=== PATIENT | female | born 1990 | race Caucasian/White ===

== ENCOUNTER 2017-11-15 17:48 | Emergency (ER) | payer BC, SELFPAY ==
[2017-11-15] MEDS ORDERED: CLINDAMYCIN IV 150 MG/ML (4 mL) VIAL ONE (19:02)
--- NOTE | 2017-11-15 20:10 | EDPHYS ---
Physician Documentation [facility] Name: Ivette Gilliland Age: 27 yrs Sex: Female : 1990 Arrival Date: 11/15/2017 Time: 17:50 Bed 13 Private MD: None, None ED Physician Geronimo Kelly HPI: 11/15 18:56 This 27 yrs old Female presents to ER via Ambulatory with complaints of Sore jmm Throat, Fever. 18:56 The patient presents with sore throat. Onset: The symptoms/episode began/occurred jmm gradually, 6 day(s) ago. This is a 27 year old female with a history anxiety that presents to the ED with 6 days of sore throat. Patient states she has taken cephalexin with no relief. Patient denies drooling or difficulty breathing. . 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 - Social history:: Smoking status: Patient uses tobacco products, smokes one-half pack cigarettes per day. - Ebola Screening: : No symptoms or risks identified at this time. ROS: 18:56 Eyes: Negative for injury, pain, redness, and discharge, Neck: Negative for injury, jmm pain, and swelling, Cardiovascular: Negative for chest pain, palpitations, and edema, Respiratory: Negative for shortness of breath, cough, wheezing, and pleuritic chest pain. 18:56 : Negative for injury, bleeding, discharge, and swelling, MS/Extremity: Negative for injury and deformity, Skin: Negative for injury, rash, and discoloration, Neuro: Negative for headache, weakness, numbness, tingling, and seizure. 18:56 Constitutional: Positive for fever. 18:56 ENT: Positive for sore throat. 18:56 All other systems are negative. Exam: 18:56 Head/Face: atraumatic. jmm 18:56 Cardiovascular: Regular rate and rhythm. No edema appreciated Respiratory: Normal respirations, no respiratory distress appreciated Abdomen/GI: Non distended, soft Back: Normal ROM Skin: General appearance color normal MS/ Extremity: Moves all extremities, no obvious deformities appreciated, no edema noted to the lower extremities Neuro: Awake and alert, normal gait 18:56 Constitutional: The patient appears in no acute distress, alert, awake. 18:56 ENT: Posterior pharynx: Uvula: midline, swelling, that is mild, erythema, that is moderate, exudate, that is moderate, peritonsillar mass, is not appreciated. 18:56 Neck: Lymph nodes: lymphadenopathy is appreciated, anterior cervical nodes. Vital Signs: 17:58 BP 145 / 89; Pulse 99; Resp 16; Temp 98.6; Pulse Ox 100% on R/A; Weight 78.47 kg; la1 Height 5 ft. 1 in. (154.94 cm); 19:20 BP 132 / 86; Pulse 92; Resp 16; Pulse Ox 98% on R/A; ao 20:41 BP 155 / 52; Pulse 93; Resp 18; Pulse Ox 98% on R/A; ao 17:58 Body Mass Index 32.69 (78.47 kg, 154.94 cm) la1 MDM: 18:56 Patient medically screened. [facility] 20:08 Data reviewed: vital signs, nurses notes, lab test result(s). Counseling: I had a [facility] detailed discussion with the patient and/or guardian regarding: the historical points, exam findings, and any diagnostic results supporting the discharge/admit diagnosis, the need for outpatient follow up, to return to the emergency department if symptoms worsen or persist or if there are any questions or concerns that arise at home. 20:08 ED course: Patient is alert and non toxic in appearance in the ED. Patient prescribed [facility] oral antibiotics and advised to follow up with ENT. Patient given return precautions. . 11/15 18:56 Order name: Strep; Complete Time: 20:08 [facility] 11/15 20:01 Order name: Throat Culture EDMS Administered Medications: 19:07 Drug: Clindamycin 600 mg Route: IM; Site: right gluteus; jb4 Disposition: 11/16 15:54 Co-signature as Attending Physician, Geronimo Kelly MD. Disposition: 11/15/17 20:09 Discharged to Home. Impression: Acute pharyngitis. - Condition is Stable. - Discharge Instructions: Pharyngitis. - Prescriptions for Clindamycin HCl 300 mg Oral Capsule - take 1 capsule by ORAL route every 6 hours for 10 days; 40 capsule. - Medication Reconciliation Form, Thank You Letter, Antibiotic Education, Prescription Opioid Use form. - Follow up: Private Physician; When: 2 - 3 days; Reason: Recheck today's complaints, Continuance of care, Re-evaluation by your physician. Signatures: Dispatcher [employer] EDMS Alex Anaya PA PA jmm Attema, Lee RN RN la1 Tin Marrero RN RN Tono Baires RN RN jb4 Geronimo Kelly MD MD gs Corrections: (The following items were deleted from the chart) 11/15 17:58 17:58 Allergies: CEPHALOSPORINS; la1 la1 20:41 20:09 11/15/2017 20:09 Discharged to Home. Impression: Acute pharyngitis. Condition is ao Stable. Forms are Medication Reconciliation Form, Thank You Letter, Antibiotic Education, Prescription Opioid Use. Follow up: Private Physician; When: 2 - 3 days; Reason: Recheck today's complaints, Continuance of care, Re-evaluation by your physician. mary
--- NOTE | 2017-11-15 20:10 | ER ---
Nurse's Notes [facility] Name: Ivette Gilliland Age: 27 yrs Sex: Female : 1990 Arrival Date: 11/15/2017 Time: 17:50 Bed 13 Private MD: None, None Diagnosis: Acute pharyngitis Presentation: 11/15 17:57 Presenting complaint: Patient states: daughter was positive for strep, they put me on la1 keflex one week ago and my throat is sore, tonsils swollen and there is white stuff all over them. Transition of care: patient was not received from another setting of care. Onset of symptoms was November 15, 2017. Risk Assessment: Do you want to hurt yourself or someone else? Patient reports no desire to harm self or others. Initial Sepsis Screen: Does the patient meet any 2 criteria? No. Patient's initial sepsis screen is negative. Does the patient have a suspected source of infection? No. Patient's initial sepsis screen is negative. Care prior to arrival: None. 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 - Social history:: Smoking status: Patient uses tobacco products, smokes one-half pack cigarettes per day. - Ebola Screening: : No symptoms or risks identified at this time. Screenin:13 Abuse screen: Denies threats or abuse. Nutritional screening: No deficits noted. jb4 Tuberculosis screening: No symptoms or risk factors identified. Fall Risk None identified. Assessment: 18:13 General: Appears in no apparent distress. comfortable, Behavior is calm, cooperative, jb4 appropriate for age, Pt reports being unable to take prednisone due to side effects.. Pain: Complains of pain in throat. Pain radiates to jaw Pain currently is 3 out of 10 on a pain scale. at worst was 5 out of 10 on a pain scale. Quality of pain is described as aching, Pain began Saturday. Neuro: Level of Consciousness is awake, alert, obeys commands, Oriented to person, place, time, situation. Cardiovascular: Heart tones S1 S2 present Patient's skin is warm and dry. Respiratory: Airway is patent Respiratory effort is even, unlabored, Respiratory pattern is regular, symmetrical, Breath sounds are clear bilaterally. GI: No signs and/or symptoms were reported involving the gastrointestinal system. : No signs and/or symptoms were reported regarding the genitourinary system. EENT: Throat is reddened has patchy exudate has enlarged tonsils bilaterally with gag reflex present. Derm: Skin is intact, Skin is pink, warm \T\ dry. Musculoskeletal: Circulation, motion, and sensation intact. 18:39 Reassessment: awaiting for provider;. jb4 19:20 Reassessment: Patient appears in no apparent distress at this time. Patient is alert, ao oriented x 3, equal unlabored respirations, skin warm/dry/pink. Received report from [employer]. Patient stable at this moment. Waiting on Dispo orders. 20:40 Reassessment: DC instructions given to patient. Patient agree to follow up with PCP. ao Vital Signs: 17:58 BP 145 / 89; Pulse 99; Resp 16; Temp 98.6; Pulse Ox 100% on R/A; Weight 78.47 kg; la1 Height 5 ft. 1 in. (154.94 cm); 19:20 BP 132 / 86; Pulse 92; Resp 16; Pulse Ox 98% on R/A; ao 20:41 BP 155 / 52; Pulse 93; Resp 18; Pulse Ox 98% on R/A; ao 17:58 Body Mass Index 32.69 (78.47 kg, 154.94 cm) la1 ED Course: 17:50 Patient arrived in ED. mr 17:50 None, None is Private Physician. mr 17:58 Triage completed. la1 17:58 Arm band placed on right wrist. la1 18:06 Tono Up RN is Primary Nurse. jb4 18:11 Alex Anaya PA is PHCP. [facility] 18:11 Geronimo Kelly MD is Attending Physician. [facility] 18:13 Patient has correct armband on for positive identification. Bed in low position. Call jb4 light in reach. Side rails up X 1. Pulse ox on. NIBP on. 18:56 Strep Sent. hj 19:05 Report given to DESI Castle. jb4 20:37 No provider procedures requiring assistance completed. Patient did not have IV access ao during this emergency room visit. Administered Medications: 19:07 Drug: Clindamycin 600 mg Route: IM; Site: right gluteus; jb4 Outcome: 20:09 Discharge ordered by MD. hernandez 20:37 Discharged to home ambulatory. ao 20:37 Condition: stable 20:37 Discharge instructions given to patient, Instructed on discharge instructions, follow up and referral plans. Demonstrated understanding of instructions, follow-up care, medications, Prescriptions given X 1. 20:41 Patient left the ED. ao Signatures: Alex Anaya PA PA jmm Rivera, Maria mr Aleta, Albaro, RN RN la1 Meng Hernandez RN RN hj Ortiz, Alex, RN RN ao Bryson, James, RN RN jb4 Corrections: (The following items were deleted from the chart) 17:58 17:58 Allergies: CEPHALOSPORINS; braden1 laAdela 18:54 18:13 General: Appears in no apparent distress. comfortable, Behavior is calm, jb4 cooperative, appropriate for age, jb4 19:21 19:20 Report given to [facility]I Castle jb4
[2017-11-15 22:12] VITALS: TEMP 98.6
[2017-11-15 22:13] VITALS: O2SAT 98
[2017-11-15 22:14] VITALS: BP 155/52
== END 2017-11-15 20:41 | disposition home or self-care (01) ==
LOC: ER 17:48
DX: J02.9 Acute pharyngitis, unspecified (principal); F17.210 Nicotine dependence, cigarettes, uncomplicated; Z88.1 Allergy status to other antibiotic agents
CPT/HCPCS: 87070; 87081; 96372; 99284; S0077

== ENCOUNTER 2018-09-23 15:46 | Emergency (ER) | payer SELFPAY ==
--- OUTSIDE RECORDS SUMMARY | 2018-09-23 15:49 | XMS REPORT ---
:1990 [facility] Address [address] [place] [address] Dr. Rhodes [address] [place] [id number] Care Team Providers Name Role Phone Unavailable Unavailable Unavailable Problems This patient has no known problems. Allergies, Adverse Reactions, Alerts This patient has no known allergies or adverse reactions. Medications This patient has no known medications.
[2018-09-23 16:34] LABS: Urine Blood TRACE (NEG); Urine Glucose NEGATIVE (NEG); Urine Protein NEGATIVE (NEG); Urine Specific Gravity <1.005 (1.005-1.030); Urine pH 5.5 (5.0-7.0)
[2018-09-23 16:39] LABS: Absolute Lymphocytes (CBC) 2.1 K/uL (0.7-4.9); Basophils % 0.4 % (0-1.3); Eosinophils % 2.5 % (0-4.4); Hematocrit 44.9 % (36.0-45.0); Lymphocytes % 15.7 % (15.3-44.8); MPV 8.6 fL (7.6-11.3); Monocytes % 4.8 % (3.3-12.3); RBC Red Blood Cell Count 4.94 M/uL (3.86-4.86)
--- NOTE | 2018-09-23 16:59 | RAD REPORT ---
EXAM DESCRIPTION: US - Transvaginal OB - 09/23/2018 4:45 pm CLINICAL HISTORY: Abd cramping, ;Vaginal bleeding COMPARISON: No comparisons FINDINGS: A single gestational sac is seen within the uterus. The shape of the sac is within normal limits for gestational age. Within the sac is a single pole with crown-rump length of 5 mm, cor relating to estimated gestational age of 6 weeks 1 day. Estimated date of delivery is 05/18/2019. Heart rate is 180 BPM. The placenta is not yet developed due to early gestational age. The maternal adnexa and right ovary are within normal limits. Normal Doppler blood flow was demonstra edward to the right ovary. 8 mm subchorionic bleed was noted. IMPRESSION: Single live early intrauterine gestation with estimated gestational age of 6 weeks 1 day gestational age, CHAD 05/18/2019. 8 mm subchorionic bleed is noted.
[2018-09-23 17:14] LABS: BUN Blood Urea Nitrogen 9 mg/dL (7-18); Bicarbonate 27 mmol/L (21-32); Glucose Level 80 mg/dL (74-106); HCG, Quantitative 60599 mIU/mL (1-3); Potassium 3.6 mmol/L (3.5-5.1); Sodium Level 139 mmol/L (136-145)
--- NOTE | 2018-09-23 17:46 | ER ---
Nurse's Notes [facility] Name: Ivette Gilliland Age: 28 yrs Sex: Female : 1990 Arrival Date: 09/23/2018 Time: 15:48 Bed 28 Private MD: Diagnosis: Threatened ;Subchorionic bleed Presentation: 09/23 15:51 Presenting complaint: Patient states: "I'm and I'm having some pretty severe aj1 cramping today and yesterday and I'm also having some cramping" Patient reports that she is 9 weeks and she is seeing the [facility] clinic for this . Transition of care: patient was not received from another setting of care. Onset of symptoms was September 23, 2018. Risk Assessment: Do you want to hurt yourself or someone else? Patient reports no desire to harm self or others. Initial Sepsis Screen: Does the patient meet any 2 criteria? No. Patient's initial sepsis screen is negative. Does the patient have a suspected source of infection? No. Patient's initial sepsis screen is negative. Care prior to arrival: None. 15:51 Method Of Arrival: Ambulatory aj 15:51 Acuity: YAZAN 3 aj1 Triage Assessment: 15:52 General: Appears in no apparent distress. comfortable, Behavior is calm, cooperative, aj1 appropriate for age. Pain: Complains of pain in right lower quadrant and left lower quadrant Pain currently is 6 out of 10 on a pain scale. Neuro: Level of Consciousness is awake, alert, obeys commands. Cardiovascular: Patient's skin is warm and dry. Respiratory: Airway is patent Respiratory effort is even, unlabored, Respiratory pattern is regular, symmetrical. GI: Reports cramping. 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 - Social history:: Smoking status: Patient/guardian denies using tobacco. - Ebola Screening: : Patient denies travel to an Ebola-affected area in the 21 days before illness onset. - Family history:: not pertinent. - Hospitalizations: : No recent hospitalization is reported. Screenin:00 Abuse screen: Denies threats or abuse. Denies injuries from another. Nutritional ca1 screening: No deficits noted. Tuberculosis screening: No symptoms or risk factors identified. Fall Risk IV access (20 points). Assessment: 16:00 General: Appears in no apparent distress. comfortable, Behavior is calm, cooperative, ca1 appropriate for age. Pain: Complains of pain in abdomen and left lower quadrant and right lower quadrant Pain does not radiate. Pain currently is 6 out of 10 on a pain scale. Quality of pain is described as crampy, Pain began 2-3 days ago. Is intermittent. Neuro: Level of Consciousness is awake, alert, obeys commands, Oriented to person, place, time, situation. Cardiovascular: Heart tones S1 S2 present Capillary refill < 3 seconds Patient's skin is warm and dry. Respiratory: Airway is patent Respiratory effort is even, unlabored, Respiratory pattern is regular, symmetrical, Breath sounds are clear bilaterally. GI: Abdomen is round non-distended, Bowel sounds present X 4 quads. Abd is soft and non tender X 4 quads. : Urine is clear. EENT: No deficits noted. No signs and/or symptoms were reported regarding the EENT system. Derm: Skin is intact, is healthy with good turgor, Skin is pink, warm \\T\\ dry. Musculoskeletal: Circulation, motion, and sensation intact. Capillary refill < 3 seconds, Range of motion: intact in all extremities. 17:10 Reassessment: Patient appears in no apparent distress at this time. Patient and/or ca1 family updated on plan of care and expected duration. Pain level reassessed. Patient is alert, oriented x 3, equal unlabored respirations, skin warm/dry/pink. Awaiting for RhoGam. 18:25 Reassessment: Patient appears in no apparent distress at this time. Patient and/or ca1 family updated on plan of care and expected duration. Pain level reassessed. Verified pt, blood band and RhoGam with ANGELY Antunez. 18:48 Reassessment: Patient appears in no apparent distress at this time. Patient is alert, ca1 oriented x 3, equal unlabored respirations, skin warm/dry/pink. Vital Signs: 15:52 BP 144 / 81; Pulse 87; Resp 18; Temp 97.2; Pulse Ox 100% on R/A; Weight 76.2 kg (R); aj1 Height 5 ft. 1 in. (154.94 cm) (R); Pain 6/10; 16:50 BP 120 / 68; Pulse 86; Resp 17 S; Pulse Ox 99% on R/A; ca1 17:29 BP 128 / 87; Pulse 83; Resp 17 S; Pulse Ox 100% on R/A; ca1 18:15 BP 106 / 71; Pulse 82; Resp 17 S; Temp 97.5(O); Pulse Ox 99% on R/A; ca1 18:49 BP 118 / 76; Pulse 83; Resp 18 S; Temp 97.5(O); Pulse Ox 100% on R/A; ca1 15:52 Body Mass Index 31.74 (76.20 kg, 154.94 cm) aj1 ED Course: 15:48 Patient arrived in ED. mr 15:50 Timothy Davis MD is Attending Physician. rn 15:51 Triage completed. aj1 15:52 Arm band placed on Patient placed in an exam room. aj1 15:55 Gris Castaneda, DESI is Primary Nurse. ca1 16:00 Patient has correct armband on for positive identification. Placed in gown. Bed in low ca1 position. Call light in reach. Side rails up X 1. Pulse ox on. NIBP on. Warm blanket given. 16:05 No provider procedures requiring assistance completed. Inserted saline lock: 20 gauge ca1 in left antecubital area, using aseptic technique. Blood collected. 16:20 Patient taken to ultrasound. via wheelchair. ca1 16:45 US Transvaginal Ob In Process Unspecified. EDMS 18:49 IV discontinued, intact, bleeding controlled, No redness/swelling at site. Pressure ca1 dressing applied. Administered Medications: 18:26 Drug: RhoGAM (Human) 300 mcg Route: IM; Site: left deltoid; ca1 18:48 Follow up: Response: No adverse reaction ca1 Outcome: 17:45 Discharge ordered by . rn 18:49 Discharged to home ambulatory, with significant other. ca1 18:49 Condition: stable 18:49 Discharge instructions given to patient, Instructed on discharge instructions, follow up and referral plans. Demonstrated understanding of instructions, follow-up care. 18:49 Patient left the ED. ca1 Signatures: Dispatcher [employer] EDJacque Parish RN RN aj1 Malaika Moss mr Timothy Davis MD MD rn AcGris glass RN RN ca1 Corrections: (The following items were deleted from the chart) 16:28 16:00 Fall Risk ca1 ca1 17:29 17:29 BP 128 / 87; Pulse 83bpm; Resp 17bpm; Pulse Ox 100% RA; ca1 ca1
--- NOTE | 2018-09-23 17:46 | EDPHYS ---
Physician Documentation [facility] Name: Ivette Gilliland Age: 28 yrs Sex: Female : 1990 Arrival Date: 09/23/2018 Time: 15:48 Bed 28 Private MD: ED Physician Timothy Davis HPI: 09/23 16:06 This 28 yrs old Female presents to ER via Ambulatory with complaints of 9 wks rn , Abdominal Pain. 16:06 The patient presents to the emergency department with vaginal bleeding, described as rn spotting. The estimated gestational age is 9 weeks. course: care: private OB physician, Leakage of Fluid: none appreciated, Ultrasound: the patient has not had an ultrasound. Previous pregnancies: in previous pregnancies patient has had no complications. The patient has not experienced similar symptoms in the past. Reports approx 9 weeks , has seen OB, no u/s, reports abd cramping entire , but now spotting over last few days, states Rh -, no trauma, no urinary symptoms.. 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 - Social history:: Smoking status: Patient/guardian denies using tobacco. - Ebola Screening: : Patient denies travel to an Ebola-affected area in the 21 days before illness onset. - Family history:: not pertinent. - Hospitalizations: : No recent hospitalization is reported. ROS: 16:06 Constitutional: Negative for fever, chills, and weight loss, Eyes: Negative for injury, rn pain, redness, and discharge, Neck: Negative for injury, pain, and swelling, Cardiovascular: Negative for chest pain, palpitations, and edema, Respiratory: Negative for shortness of breath, cough, wheezing, and pleuritic chest pain, Abdomen/GI: + abd cramping, negative for vomiting/diarrhea : + vaginal spotting MS/Extremity: Negative for injury and deformity, Skin: Negative for injury, rash, and discoloration, Neuro: Negative for headache, weakness, numbness, tingling, and seizure. Exam: 16:06 Constitutional: This is a well developed, well nourished patient who is awake, alert, rn and in no acute distress. Head/Face: Normocephalic, atraumatic. Abdomen/GI: soft, non-tender Skin: Warm, dry with normal turgor. Normal color with no rashes, no lesions, and no evidence of cellulitis. MS/ Extremity: Pulses equal, no cyanosis. Neurovascular intact. Full, normal range of motion. Equal circumference. Neuro: Awake and alert, GCS 15, oriented to person, place, time, and situation. Cranial nerves II-XII grossly intact. Motor strength 5/5 in all extremities. Sensory grossly intact. Cerebellar exam normal. Normal gait. Vital Signs: 15:52 BP 144 / 81; Pulse 87; Resp 18; Temp 97.2; Pulse Ox 100% on R/A; Weight 76.2 kg (R); aj1 Height 5 ft. 1 in. (154.94 cm) (R); Pain 6/10; 16:50 BP 120 / 68; Pulse 86; Resp 17 S; Pulse Ox 99% on R/A; ca1 17:29 BP 128 / 87; Pulse 83; Resp 17 S; Pulse Ox 100% on R/A; ca1 18:15 BP 106 / 71; Pulse 82; Resp 17 S; Temp 97.5(O); Pulse Ox 99% on R/A; ca1 18:49 BP 118 / 76; Pulse 83; Resp 18 S; Temp 97.5(O); Pulse Ox 100% on R/A; ca1 15:52 Body Mass Index 31.74 (76.20 kg, 154.94 cm) aj1 MDM: 15:50 Patient medically screened. rn 17:43 Differential diagnosis: ectopic . Differential diagnosis: threatened rn miscarriage. Data reviewed: vital signs, nurses notes. Counseling: I had a detailed discussion with the patient and/or guardian regarding: the historical points, exam findings, and any diagnostic results supporting the discharge/admit diagnosis, lab results, radiology results, the need for outpatient follow up, to return to the emergency department if symptoms worsen or persist or if there are any questions or concerns that arise at home. Special discussion: I discussed with the patient/guardian in detail that at this point there is no indication for admission to the hospital. It is understood, however, that if the symptoms persist or worsen the patient needs to return immediately for re-evaluation. Based on the history and exam findings, there is no indication for further emergent testing or inpatient evaluation. I discussed with the patient/guardian the need to see the OB Gyne specialist for further evaluation of the symptoms. ED course: Pt with single live IUP, small subchorionic bleed, Rh-, Rhogam given, and will f/u with her private OB. . 09/23 16:06 Order name: Quantitative Hcg; Complete Time: 17:17 09/23 16:06 Order name: Abo/rh Typing 09/23 16:06 Order name: Basic Metabolic Panel; Complete Time: 17:17 09/23 16:06 Order name: CBC with Diff; Complete Time: 16:53 09/23 16:18 Order name: Urine Dipstick--Ancillary (enter results); Complete Time: 16:53 09/23 16:18 Order name: Urine --Ancillary (enter results); Complete Time: 16:53 09/23 16:06 Order name: US Transvaginal Ob; Complete Time: 17:06 09/23 17:21 Order name: Rh Typing [facility] 09/23 17:21 Order name: Antibody Screen [facility] 09/23 17:21 Order name: Fetalscreen [facility] 09/23 17:21 Order name: Cord Rh type [facility] 09/23 17:21 Order name: Rhogam [facility] 09/23 17:32 Order name: ABO/RH no charge [facility] 09/23 16:06 Order name: Urine Test (obtain specimen); Complete Time: 16:16 09/23 16:06 Order name: IV Saline Lock; Complete Time: 16:25 09/23 16:06 Order name: Labs collected and sent; Complete Time: 16:25 09/23 16:06 Order name: Urine Dipstick-Ancillary (obtain specimen); Complete Time: 16:16 rn Administered Medications: 18:26 Drug: RhoGAM (Human) 300 mcg Route: IM; Site: left deltoid; ca1 18:48 Follow up: Response: No adverse reaction ca1 Disposition: 09/23/18 17:45 Discharged to Home. Impression: Threatened , Subchorionic bleed. - Condition is Stable. - Discharge Instructions: Threatened Miscarriage, Vaginal Bleeding During , First Trimester, Subchorionic Hematoma, Pelvic Rest. - Medication Reconciliation Form, Thank You Letter, Antibiotic Education, Prescription Opioid Use form. - Follow up: Private Physician; When: As needed; Reason: Recheck today's complaints, Re-evaluation by your physician. - Problem is new. - Symptoms have improved. Signatures: Dispatcher [employer] EDJacque Parish RN RN aj1 Timothy Davis MD MD rn Acob, DESI Landry RN ca1 Corrections: (The following items were deleted from the chart) 18:49 17:45 09/23/2018 17:45 Discharged to Home. Impression: Threatened ; ca1 Subchorionic bleed. Condition is Stable. Forms are Medication Reconciliation Form, Thank You Letter, Antibiotic Education, Prescription Opioid Use. Follow up: Private Physician; When: As needed; Reason: Recheck today's complaints, Re-evaluation by your physician. Problem is new. Symptoms have improved. rn
[2018-09-23 19:14] VITALS: TEMP 97.5
[2018-09-23 19:15] VITALS: BP 118/76; O2SAT 100
== END 2018-09-23 18:49 | disposition home or self-care (01) ==
LOC: ER 15:46
DX: O20.0 Threatened abortion (principal); O99.341 Other mental disorders complicating pregnancy, first trimester; F41.9 Anxiety disorder, unspecified; Z3A.09 9 weeks gestation of pregnancy; Z88.1 Allergy status to other antibiotic agents; Z91.040 Latex allergy status
CPT/HCPCS: 36415; 76817; 80048; 81003; 81025; 84702; 85025; 86850; 86900; 86901; 96372; 99284; J2790

== ENCOUNTER 2018-09-24 07:01 | Emergency (ER) | payer SELFPAY ==
--- OUTSIDE RECORDS SUMMARY | 2018-09-24 07:16 | XMS REPORT ---
:1990 [facility] Address [address] [place] [address] Dr. Rhodes [address] [place] [id number] Care Team Providers Name Role Phone Unavailable Unavailable Unavailable Problems This patient has no known problems. Allergies, Adverse Reactions, Alerts This patient has no known allergies or adverse reactions. Medications This patient has no known medications.
--- NOTE | 2018-09-24 08:22 | RAD REPORT ---
EXAM DESCRIPTION: US - Transvaginal OB - 09/24/2018 8:11 am CLINICAL HISTORY: Abd cramping, ;Vaginal bleeding COMPARISON: Transvaginal OB dated 09/23/2018 FINDINGS: A single gestational sac is seen within the uterus. The sac appears somewhat large inside. Within the sac is a single pole with crown-rump length of 5 mm, correlating to estimated gesta tional age of 6 weeks 2 days. Estimated date of delivery is 05/18/2021. Heart rate could not be seen on today's study despite prolonged sonographic observation. The placenta is not yet developed due to early gestational age. 8 mm subchorionic bleed is present. The maternal adnexa and ovaries are within normal limits. Normal Doppler blood flow was demonstrated to both ovaries. IMPRESSION: On today's examination, FHT could not be demonstrated. This is a worrisome finding for f dominguez early and close interval follow-up pelvic ultrasound is recommended in 48 hours.
--- NOTE | 2018-09-24 09:12 | ER ---
Nurse's Notes [facility] Name: Ivette Gilliland Age: 28 yrs Sex: Female : 1990 Arrival Date: 09/24/2018 Time: 07:01 Bed 4 Private MD: Diagnosis: Threatened Presentation: 09/24 07:06 Presenting complaint: Patient states: I was in here yesterday for spotting and ed1 cramping. When I woke up this morning I was having heavy vaginal bleeding and the cramping is really bad. Transition of care: patient was not received from another setting of care. Onset of symptoms was September 24, 2018. Risk Assessment: Do you want to hurt yourself or someone else? Patient reports no desire to harm self or others. Initial Sepsis Screen: Does the patient meet any 2 criteria? No. Patient's initial sepsis screen is negative. Does the patient have a suspected source of infection? No. Patient's initial sepsis screen is negative. Care prior to arrival: None. 07:06 Method Of Arrival: Ambulatory ed1 07:06 Acuity: YAZAN 2 ed1 Triage Assessment: 07:07 General: Appears in no apparent distress. Behavior is calm, cooperative. Pain: ed1 Complains of pain in suprapubic area Pain currently is 0 out of 10 on a pain scale. at worst was 10 out of 10 on a pain scale. : Reports vaginal bleeding that is bright red. 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 - Social history:: Smoking status: Patient/guardian denies using tobacco. - Ebola Screening: : Patient negative for fever greater than or equal to 101.5 degrees Fahrenheit, and additional compatible Ebola Virus Disease symptoms Patient denies exposure to infectious person Patient denies travel to an Ebola-affected area in the 21 days before illness onset No symptoms or risks identified at this time. Screenin:38 Abuse screen: Denies threats or abuse. Nutritional screening: No deficits noted. tr5 Tuberculosis screening: No symptoms or risk factors identified. Fall Risk No fall in past 12 months (0 pts). No secondary diagnosis (0 pts). No IV (0 pts). Ambulatory Aid- None/Bed Rest/Nurse Assist (0 pts). Gait- Normal/Bed Rest/Wheelchair (0 pts) Mental Status- Oriented to own ability (0 pts). Total Scott Fall Scale indicates No Risk (0-24 pts). Assessment: 07:35 Obstetrical Assessment: General assessment: awake and alert. tr5 07:35 General: Appears in no apparent distress. Behavior is calm, cooperative, appropriate tr5 for age. Pain: Denies pain. Neuro: Level of Consciousness is awake, alert, Oriented to person, place, time, situation, [employer] are equal bilaterally Moves all extremities. Cardiovascular: Heart tones present Bruits absent Capillary refill < 3 seconds Pulses are all present. Edema is absent. Respiratory: Airway is patent Trachea midline Respiratory effort is even, unlabored, Respiratory pattern is regular, symmetrical, Breath sounds are clear bilaterally. GI: No signs and/or symptoms were reported involving the gastrointestinal system. : Reports vaginal bleeding that is bright red, moderate flow. EENT: No signs and/or symptoms were reported regarding the EENT system. Derm: Skin is intact, Skin is dry, Skin is pink, warm \T\ dry. Musculoskeletal: Capillary refill < 3 seconds, Range of motion: intact in all extremities. Vital Signs: 07:07 BP 140 / 69; Pulse 75; Resp 17; Temp 98.2(TE); Pulse Ox 100% on R/A; Weight 76.2 kg; ed1 Height 5 ft. 1 in. (154.94 cm); Pain 0/10; 07:07 Body Mass Index 31.74 (76.20 kg, 154.94 cm) ed1 ED Course: 07:01 Patient arrived in ED. as 07:03 Nita Mccrary FNP-C [facility]. kb 07:03 Fabio Hernández MD is Attending Physician. kb 07:07 Triage completed. ed1 07:07 Arm band placed on right wrist. ed1 07:34 Patient taken to ultrasound. hr 07:35 Initial lab(s) drawn, by me, sent to lab. tr5 07:54 Mckinley Britton, RN is Primary Nurse. 08:08 Transvaginal Ob In Process Unspecified. EDMS 08:39 Awaiting lab results, Awaiting radiology results. tr5 09:35 No provider procedures requiring assistance completed. Patient did not have IV access hb during this emergency room visit. Administered Medications: No medications were administered Outcome: 09:11 Discharge ordered by . kb 09:34 Discharged to home with significant other. hb 09:34 Condition: stable 09:34 Discharge instructions given to patient, Instructed on discharge instructions, follow up and referral plans. Demonstrated understanding of instructions, follow-up care. 09:35 Patient left the ED. hb Signatures: Dispatcher [employer] EDMS Nita Mccrary, SENIOR DIRECTOR-C SENIOR DIRECTOR-Shahida Lagos, RN RN Chelo Arenas Amelia as Riggs, Erika, RN RN ed1 Maddie Chacon RN RN Mckinley Britton, RN RN tr5 Corrections: (The following items were deleted from the chart) 08:38 08:35 Obstetrical Assessment: General assessment: awake and alert, tr5 tr5
--- NOTE | 2018-09-24 09:12 | EDPHYS ---
Physician Documentation [facility] Name: Ivette Gilliland Age: 28 yrs Sex: Female : 1990 Arrival Date: 09/24/2018 Time: 07:01 Bed 4 Private MD: YURIY Physician Fabio Hernández HPI: 09/24 07:14 This 28 yrs old Female presents to ER via Ambulatory with complaints of kb Vaginal Bleeding, + Preg <12wks. 07:14 The patient presents to the emergency department with abdominal pain, of the suprapubic kb area, vaginal bleeding, that is light. The estimated gestational age is 6 weeks. course: care: at a clinic, Leakage of Fluid: none appreciated, Ultrasound: the patient had an ultrasound, on September 23, 2018, which was normal. Previous pregnancies: in previous pregnancies patient has had. Associated signs and symptoms: Pertinent positives: abdominal pain, vaginal bleeding, Pertinent negatives: chest pain, diarrhea, dysuria, fever, frequency, nausea, ruptured membranes, seizure, shortness of breath, vaginal discharge, vomiting. The patient has not experienced similar symptoms in the past. The patient has been recently seen at the [facility] Emergency Department, yesterday. Pt reports she has had abd cramping and spotting for a couple of days. Came in yesterday and was given a dose of Rhogam after labs and US. States the bleeding is a little heavier now.. 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 - Social history:: Smoking status: Patient/guardian denies using tobacco. - Ebola Screening: : Patient negative for fever greater than or equal to 101.5 degrees Fahrenheit, and additional compatible Ebola Virus Disease symptoms Patient denies exposure to infectious person Patient denies travel to an Ebola-affected area in the 21 days before illness onset No symptoms or risks identified at this time. ROS: 07:13 Constitutional: Negative for fever, chills, and weight loss, ENT: Negative for injury, kb pain, and discharge, Neck: Negative for injury, pain, and swelling, Cardiovascular: Negative for chest pain, palpitations, and edema, Respiratory: Negative for shortness of breath, cough, wheezing, and pleuritic chest pain, Back: Negative for injury and pain, MS/Extremity: Negative for injury and deformity, Skin: Negative for injury, rash, and discoloration, Neuro: Negative for headache, weakness, numbness, tingling, and seizure. 07:13 Abdomen/GI: Positive for abdominal pain, Negative for nausea, vomiting, and diarrhea, constipation, abdominal cramps, abdominal distension, anorexia. 07:13 : Positive for vaginal bleeding. Exam: 07:13 Constitutional: This is a well developed, well nourished patient who is awake, alert, kb and in no acute distress. Head/Face: Normocephalic, atraumatic. Chest/axilla: Normal chest wall appearance and motion. Nontender with no deformity. No lesions are appreciated. Cardiovascular: Regular rate and rhythm with a normal S1 and S2. No gallops, murmurs, or rubs. Normal PMI, no JVD. No pulse deficits. Respiratory: Lungs have equal breath sounds bilaterally, clear to auscultation and percussion. No rales, rhonchi or wheezes noted. No increased work of breathing, no retractions or nasal flaring. Abdomen/GI: Soft, non-tender, with normal bowel sounds. No distension or tympany. No guarding or rebound. No evidence of tenderness throughout. Skin: Warm, dry with normal turgor. Normal color with no rashes, no lesions, and no evidence of cellulitis. MS/ Extremity: Pulses equal, no cyanosis. Neurovascular intact. Full, normal range of motion. Neuro: Awake and alert, GCS 15, oriented to person, place, time, and situation. Cranial nerves II-XII grossly intact. Motor strength 5/5 in all extremities. Sensory grossly intact. Cerebellar exam normal. Normal gait. Vital Signs: 07:07 BP 140 / 69; Pulse 75; Resp 17; Temp 98.2(TE); Pulse Ox 100% on R/A; Weight 76.2 kg; ed1 Height 5 ft. 1 in. (154.94 cm); Pain 0/10; 07:07 Body Mass Index 31.74 (76.20 kg, 154.94 cm) ed1 MDM: 07:08 Patient medically screened. kb 07:14 Data reviewed: vital signs, nurses notes. Data interpreted: Pulse oximetry: on room air kb is 100 %. Interpretation: normal. 09:11 Counseling: I had a detailed discussion with the patient and/or guardian regarding: the kb historical points, exam findings, and any diagnostic results supporting the discharge/admit diagnosis, lab results, radiology results, the need for outpatient follow up, an OB/Gyne specialist, to return to the emergency department if symptoms worsen or persist or if there are any questions or concerns that arise at home. 09/24 07:09 Order name: HCG-Quantitative; Complete Time: 09:11 kb 09/24 07:09 Order name: US Transvaginal Ob; Complete Time: 08:25 kb Administered Medications: No medications were administered Disposition: 09/24/18 09:11 Discharged to Home. Impression: Threatened . - Condition is Stable. - Discharge Instructions: Threatened Miscarriage, [id number], Pelvic Rest. - Medication Reconciliation Form, Thank You Letter, Antibiotic Education, Prescription Opioid Use form. - Follow up: Emergency Department; When: As needed; Reason: Worsening of condition. Follow up: Private Physician; When: 2 - 3 days; Reason: Recheck today's complaints, Continuance of care, Re-evaluation by your physician. Signatures: Dispatcher [employer] EDFL Nita Mccrary, ANILA SHAFFER-Rayne Casiano RN RN ed1 Maddie Chacon RN RN hb Corrections: (The following items were deleted from the chart) 09:35 09:11 09/24/2018 09:11 Discharged to Home. Impression: Threatened . Condition hb is Stable. Forms are Medication Reconciliation Form, Thank You Letter, Antibiotic Education, Prescription Opioid Use. Follow up: Emergency Department; When: As needed; Reason: Worsening of condition. Follow up: Private Physician; When: 2 - 3 days; Reason: Recheck today's complaints, Continuance of care, Re-evaluation by your physician. kb
[2018-09-24 10:13] VITALS: BP 140/69; TEMP 98.2; O2SAT 100
== END 2018-09-24 09:35 | disposition home or self-care (01) ==
LOC: ER 07:01
DX: O20.0 Threatened abortion (principal); O99.341 Other mental disorders complicating pregnancy, first trimester; F41.9 Anxiety disorder, unspecified; Z3A.01 Less than 8 weeks gestation of pregnancy; Z88.1 Allergy status to other antibiotic agents; Z91.040 Latex allergy status
CPT/HCPCS: 36415; 76817; 84702; 99284